=== PATIENT | female | born 1975 | race Caucasian/White ===

== ENCOUNTER 2024-01-19 08:06 | Emergency (ER) | payer OTHER ==
[~2024-01-19] VITALS: Ht 167.6 cm; Wt 108.0 kg
[~2024-01-19 08:06] MED LIST: NO HOME MEDS
[2024-01-19 08:08] VITALS: TEMP 98
[2024-01-19 09:51] VITALS: BP 161/100; PULSE 99; RESP 18; O2SAT 98
[2024-01-19 10:45] LABS: STREP A SCREEN POSITIVE (Neg)
[2024-01-19] MEDS ORDERED: AMOX500C2 PO (10:52)
[2024-01-19] MEDS: CefTRIAXone 1000mg IM Kit (w/lidocaine diluent) IM ONE (11:09)
== END 2024-01-19 11:11 | disposition home or self-care (01) ==
LOC: ER 08:06
DX: J02.0 Streptococcal pharyngitis (principal); Z20.822 Contact with and (suspected) exposure to COVID-19
CPT/HCPCS: 36415; 71045; 87502; 87503; 87811; 87880; 96372; 99284; J0696